=== PATIENT | female | born 1940 | race Caucasian/White ===

== ENCOUNTER 2016-11-08 08:05 | Observation (INO) | payer MEDICARE, BC ==
[2016-11-08] VITALS (7 sets, daily range): BP systolic 143–204; BP diastolic 68–86; PULSE 59–75; RESP 14–18; TEMP 98; O2SAT 98–100
[~2016-11-08] VITALS: Ht 152.4 cm; Wt 50.0 kg
[~2016-11-08 08:05] MED LIST: BACT800T5 PO; METO25CR PO; METO25TA6 PO; NAPR-576 PO; OMEP20TA PO; PROBCAP4 PO; ROSU40 PO; VIVE0.05 TD; [UNRECOGNIZED DRUG - CODE] PO
--- NOTE | 2016-11-08 08:18 | PD ---
Physical Exam Date Seen by Provider: Nov 08, 2016 Time Seen by Provider: 08:13 Narrative PT is a 76 year old female presenting to the ED with c/o sharp chest pain that started at 0530 this AM. Pain lasted for a few seconds, but she continues to have a dull burning pain that has continued since that time. Pt feels tired, but no SOB, n/v, RSUH. Pt states she feels nervous and shaky. Pt reports her pain as 2-3/10, burning persistent heaviness in her chest. No hx of CVA or AMI. Pt is on ASA daily. Data Data Last Documented VS Vital Signs Date Time Temp Pulse Resp B/P Pulse Ox O2 Delivery O2 Flow Rate FiO2 11/08/16 08:09 98.0 75 17 204/86 98 Orders Electrocardiogram (11/08/16 ) [facility] Supervised Visit with KAY: Alyse Almazan Nov 08, 2016 08:18
[2016-11-08] MEDS ORDERED: ASPIRIN 81 MG CHEW TAB PO ONE (08:30)
[2016-11-08] MEDS ORDERED: SODIUM CHLORIDE 0.9% FLUSH 10 ML FLUSH IVF PRN (08:30)
[2016-11-08] MEDS ORDERED: MULTTAB67 PO (08:32)
[2016-11-08] MEDS ORDERED: ASPI1TAB69 PO (08:32)
[2016-11-08] MEDS ORDERED: METO25TA6 PO (08:32)
[2016-11-08] MEDS ORDERED: QUIN20TA2 PO (08:32)
--- NOTE | 2016-11-08 08:36 | PD ---
HPI Chief Complaint: Chest Pain Time Seen by Provider: 08:32 Travel History International Travel<30 days: Yes Contact w/Intl Traveler<30days: [place] Traveled to: [email or web address] Traveled to known affect area: No History of Present Illness HPI This 76-year-old woman who presents to the emergency department complaining of chest pain times this morning. States she woke up at about 5:30 this morning when she felt like her heart skipped hard and afterward she had heaviness and discomfort in the right side of her chest. She describes burning and heaviness and discomfort that been ongoing since that time. She went to get dressed to go to taoism but during the course of getting dressed symptoms worsened. She states she's had occasional skipped beats in the past but never this pressure- like heaviness in her chest. She otherwise has been feeling generally well and healthy. She has felt a little shaky since the episode. Denies any shortness of breath or diaphoresis associated with the episodes. She is a history of hypertension. No other medical problems. No history of CAD. She states about 2 years ago she had some dizziness and was seen by Dr. Galaviz and had an extensive workup that included a stress test, Holter, neck ago, was negative. She walks about 2 miles a day on the treadmill and has not had any trouble with change in exercise tolerance. 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) Allergies-Medications (Allergen,Severity, Reaction): Coded Allergies: Hydrocodone (Verified Allergy, Severe, Nausea/Vomiting, 03/30/16) Tramadol (Verified Allergy, Severe, VOMITING, 03/30/16) Lortab (Verified Adverse Reaction, Intermediate, VOMITTING, 03/30/16) Cephalosporins (Verified Adverse Reaction, Mild, Diarrhea, 03/30/16) Zithromax (Verified Adverse Reaction, Mild, Diarrhea, 03/30/16) Reported Meds & Prescriptions Reported Meds & Active Scripts Active Reported Multiple Vitamin 1 Tab 1 Tab PO DAILY Aspirin 81 Mg Tabdr 81 Mg PO DAILY Quinapril-Hydrochlorothiazide 20-12.5 Mg Tab 1 Tab PO DAILY Metoprolol Succinate ER 24 HR (Metoprolol Succinate) 25 Mg Tab 25 Mg PO BID Review of Systems Except as stated in HPI: all other systems reviewed are Neg Physical Exam Narrative GENERAL: Well-appearing 76-year-old woman, no acute distress. SKIN: Focused skin assessment warm/dry. NECK: Trachea midline. No JVD. CARDIOVASCULAR: Regular rate and rhythm. No murmur appreciated. RESPIRATORY: No accessory muscle use. Clear to auscultation. Breath sounds equal bilaterally. GASTROINTESTINAL: Abdomen soft, non-tender, nondistended. Hepatic and splenic margins not palpable. MUSCULOSKELETAL: No obvious deformities. No clubbing. No cyanosis. No edema. NEUROLOGICAL: Awake and alert. No obvious cranial nerve deficits. Motor grossly within normal limits. Normal speech. PSYCHIATRIC: Appropriate mood and affect; insight and judgment normal. Data Data Last Documented VS Vital Signs Date Time Temp Pulse Resp B/P Pulse Ox O2 Delivery O2 Flow Rate FiO2 11/08/16 08:25 73 14 177/86 100 Room Air 11/08/16 08:09 98.0 Orders Electrocardiogram (11/08/16 ) Ckmb (Isoenzyme) Profile (11/08/16 08:24) Complete Blood Count With Diff (11/08/16 08:24) Comprehensive Metabolic Panel (11/08/16 08:24) Magnesium (Mg) (11/08/16 08:24) Prothrombin Time / Inr (Pt) (11/08/16 08:24) Act Partial Throm Time (Ptt) (11/08/16 08:24) Troponin I (11/08/16 08:24) Chest, Single Ap (11/08/16 08:24) Ecg Monitoring (11/08/16 08:24) Bilateral Bp Monitoring (11/08/16 08:24) Iv Access Insert/Monitor (11/08/16 08:24) Oximetry (11/08/16 08:24) Oxygen Administration (11/08/16 08:24) Aspirin Chew (Aspirin Chew) (11/08/16 08:30) Sodium Chloride 0.9% Flush (Ns Flush) (11/08/16 08:30) Lipase (11/08/16 08:32) CKMB (11/08/16 08:35) CKMB% (11/08/16 08:35) Labs Laboratory Tests Test 11/08/16 08:35 White Blood Count 4.5 TH/MM3 Red Blood Count 4.57 MIL/MM3 Hemoglobin 13.0 GM/DL Hematocrit 38.5 % Mean Corpuscular Volume 84.3 FL Mean Corpuscular Hemoglobin 28.4 PG Mean Corpuscular Hemoglobin 33.7 % Concent Red Cell Distribution Width 14.0 % Platelet Count 148 TH/MM3 Mean Platelet Volume 9.9 FL Neutrophils (%) (Auto) 57.7 % Lymphocytes (%) (Auto) 28.9 % Monocytes (%) (Auto) 9.7 % Eosinophils (%) (Auto) 3.3 % Basophils (%) (Auto) 0.4 % Neutrophils # (Auto) 2.6 TH/MM3 Lymphocytes # (Auto) 1.3 TH/MM3 Monocytes # (Auto) 0.4 TH/MM3 Eosinophils # (Auto) 0.1 TH/MM3 Basophils # (Auto) 0.0 TH/MM3 CBC Comment DIFF FINAL Differential Comment Prothrombin Time 10.4 SEC Prothromb Time International 0.9 RATIO Ratio Activated Partial 24.3 SEC Thromboplast Time Sodium Level 139 MEQ/L Potassium Level 4.0 MEQ/L Chloride Level 103 MEQ/L Carbon Dioxide Level 29.9 MEQ/L Anion Gap 6 MEQ/L Blood Urea Nitrogen 25 MG/DL Creatinine 0.98 MG/DL Estimat Glomerular Filtration 55 ML/MIN Rate Random Glucose 95 MG/DL Calcium Level 9.6 MG/DL Magnesium Level 2.5 MG/DL Total Bilirubin 0.3 MG/DL Aspartate Amino Transf 24 U/L (AST/SGOT) Alanine Aminotransferase 21 U/L (ALT/SGPT) Alkaline Phosphatase 88 U/L Total Creatine Kinase 183 U/L Creatine Kinase MB 3.2 NG/ML Troponin I LESS THAN 0.02 NG/ML Total Protein 7.9 GM/DL Albumin 3.8 GM/DL Lipase 187 U/L [facility] Medical Decision Making Medical Screen Exam Complete: Yes Emergency Medical Condition: Yes Interpretation(s) My review of EKG: Normal sinus rhythm at a rate of 69, slightly leftward axis, normal intervals, no definite evidence of acute ischemia. LABS: CBC unremarkable. CMP unremarkable. Troponin negative. Lipase normal. Coags unremarkable Chest x-ray: No acute disease. Differential Diagnosis ACS, palpitations, anxiety, gastritis or reflux, hepatobiliary disease, pancreatitis, PE, dissection, other Narrative Course Medical decision making INITIAL: This 76-year-old woman who presents to the emergency department complaining of heaviness and burning pain in the right side of her chest that started this morning about 5:30 AM, gradually worsening. Looks well. Negative workup about 2 years ago. No history of CAD. History is moderately suspicious for ACS. No evidence of PE or dissection. We'll check labs, x-ray, EKG, likely admission to the chest pain Center for further evaluation. Diagnosis Primary Impression: Chest pain Qualified Code: R07.9 - Chest pain, unspecified type Yazan Plasencia MD Nov 08, 2016 08:36 Yazan Palsencia MD Nov 08, 2016 08:36
[2016-11-08 08:51] LABS: AUTOMATED NEUTROPHIL # 2.6 TH/MM3 (1.8-7.7); BASOPHIL % 0.4 % (0.0-2.0); EOSINOPHIL # 0.1 TH/MM3 (0-0.4); EOSINOPHIL % 3.3 % (0.0-4.0); HEMATOCRIT 38.5 % (35.0-46.0); HEMO FLAGS DIFF FINAL; LYMPH % 28.9 % (9.0-44.0); LYMPHOCYTE # 1.3 TH/MM3 (1.0-4.8); MEAN CELL VOLUME 84.3 FL (80.0-100.0); MEAN CORPUSCULAR HEMOGLOBIN 28.4 PG (27.0-34.0); MEAN CORPUSCULAR HGB CONC 33.7 % (32.0-36.0); MONO % 9.7 % (0.0-8.0); NEUT % 57.7 % (16.0-70.0); PLATELET COUNT 148 TH/MM3 (150-450); RED BLOOD COUNT 4.57 MIL/MM3 (4.00-5.30); WHITE BLOOD COUNT 4.5 TH/MM3 (4.0-11.0)
--- NOTE | 2016-11-08 08:53 | RADRPT ---
EXAM DATE/TIME: 11/08/2016 08:29 [place] COMPARISON: CHEST SINGLE AP, October 17, 2014, 11:37. INDICATIONS : Chest pain. MEDICAL HISTORY : None. SURGICAL HISTORY : None. ENCOUNTER: Initial ACUITY: 1 day PAIN SCORE: 0/10 LOCATION: Bilateral chest FINDINGS: A single view of the chest demonstrates the lungs to be symmetrically aerated without evidence of mas s, infiltrate or effusion. The cardiomediastinal contours are unremarkable. Osseous structures are intact. CONCLUSION: No acute disease. Guzman Elder MD FACR on November 08, 2016 at 8:51 Board Certified Radiologist. This report was verified electronically.
[2016-11-08 08:58] LABS: APTT (PATIENT) 24.3 SEC (24.3-30.1); INTERNATIONAL NORMALIZED RATIO 0.9 RATIO; PROTHROMBIN TIME - PATIENT 10.4 SEC (9.8-11.6)
[2016-11-08 09:15] LABS: ANION GAP 6 MEQ/L (5-15); AST (GOT) 24 U/L (15-37); BICARBONATE 29.9 MEQ/L (21.0-32.0); BLOOD UREA NITROGEN 25 MG/DL (7-18); CHLORIDE 103 MEQ/L (98-107); GLOMERULAR FILTRATION RATE 55 ML/MIN (>89); MAGNESIUM 2.5 MG/DL (1.5-2.5); SODIUM (NA) 139 MEQ/L (136-145)
[2016-11-08 09:20] LABS: ALKALINE PHOSPHATASE 88 U/L (45-117); ALT (GPT) 21 U/L (10-53); CREATINE KINASE 183 U/L (26-192); TOTAL BILIRUBIN ADULT 0.3 MG/DL (0.2-1.0)
[2016-11-08 09:32] LABS: CKMB 3.2 NG/ML (0.5-3.6)
[2016-11-08] MEDS ORDERED: PRAV10TA PO (11:26)
[2016-11-08] MEDS ORDERED: METO25TA3 PO (11:26)
[2016-11-08] MEDS ORDERED: ALPRAZolam 0.25 MG TAB PO PRN (11:30)
[2016-11-08] MEDS ORDERED: ONDANSETRON HCL 4 MG/2 ML VIAL IV PRN (11:30)
[2016-11-08] MEDS ORDERED: SODIUM CHLORIDE 0.9% FLUSH 5 ML FLUSH IVF PRN (11:30)
[2016-11-08] MEDS ORDERED: QUIN10TA2 PO ×2 (11:42→16:25)
--- NOTE | 2016-11-08 11:45 | HHI.HP ---
HPI Primary Care Physician Xiomy Perez MD Chief Complaint Chest pain History of Present Illness This is a 76-year-old female that presents to the ED via private vehicle with a complaint of palpitation and chest discomfort. Patient states she's had episodes of sensation where her heart would skip a beat and this has occurred for months. It will be for a split-second and happens about every other day. However this morning at 5:30 she had similar sensation also lasting a split second however the intensity was much stronger. Soon later she also felt a left -sided heaviness in her chest that is still there. She describes the discomfort as mild in nature but new for her. She has found that it helps when she takes in a deep breath. Also complains of dizziness. After discussing this with her, she has had issues with dizziness for many years. She as recently as 2 years ago had a full cardiac workup with Dr. Galaviz for dizziness. She states that she had a treadmill stress test, 2-D echo, 30 day event monitor, and PET nuclear scan and all those results were normal. She saw neurologists and other specialties as well and can are really discover the cause of her dizziness. Then suddenly the dizziness went away for about a few months but began again Wednesday. She feels as if when she is walking the de guzman are coming in on her. Denies headache. Denies numbness tingling weakness in extremities. States she is very active. She walks on a treadmill every day for 3 miles at 2-1/2-3 [id number]. She never gets her symptoms while doing that. She also lifts some weights and does not have discomforts or other symptoms with that activity. Denies recent illness. Denies fevers or chills. Review of Systems General: Patient denies fevers, chills recent, and recent travel HEENT: Patient denies headache, sore throat, difficulty swallowing. Cardiovascular: Has the chest discomfort as mentioned above. Has a sensation of her heart skipping a beat. Denies diaphoresis and syncope. Respiratory: Denies shortness of breath or inspirational chest discomfort. Denies coughing wheezing or hemoptysis. GI: Patient denies nausea, vomiting, diarrhea, abdominal pain, bloody stools. Musculoskeletal: Patient denies joint pain or edema. Denies calf pain or edema. Neurovascular: Complains of dizziness. Patient denies numbness, tingling, weakness in extremities. Denies headache. Endocrine: Denies polyuria and polydipsia. Hematologic: Denies easy bruising. Skin: Denies rash or itching. Past Family Social History Allergies: Coded Allergies: Hydrocodone (Verified Allergy, Severe, Nausea/Vomiting, 03/30/16) Tramadol (Verified Allergy, Severe, VOMITING, 03/30/16) Lortab (Verified Adverse Reaction, Intermediate, VOMITTING, 03/30/16) Cephalosporins (Verified Adverse Reaction, Mild, Diarrhea, 03/30/16) Zithromax (Verified Adverse Reaction, Mild, Diarrhea, 03/30/16) Past Medical History Hypertension, hyperlipidemia, vertigo, and dizziness. Denies diabetes and known CAD. Past Surgical History Noncontributory. Reported Medications Reported Meds & Active Scripts Active Reported Pravastatin 10 Mg Tab Unknown Dose PO DAILY Metoprolol Tartrate 25 Mg Tab 25 Mg PO BID Multiple Vitamin 1 Tab 1 Tab PO DAILY Aspirin 81 Mg Tabdr 81 Mg PO DAILY Quinapril-Hydrochlorothiazide 20-12.5 Mg Tab 1 Tab PO DAILY Active Ordered Medications Current Medications Medications (Trade) Dose Ordered Sig/Abbi Route Start Time Stop Time Status Last Admin (NS Flush) 2 ml UNSCH PRN IVF 11/08/16 08:30 (NS Flush) 2 ml UNSCH PRN IVF 11/08/16 11:30 (NS Flush) 2 ml BID IVF 11/08/16 21:00 (Zofran Inj) 4 mg Q6H PRN IV 11/08/16 11:30 (Aspirin) 325 mg DAILY PO 11/09/16 09:00 (Xanax) 0.25 mg Q8H PRN PO 11/08/16 11:30 Family History Denies family history of CAD. Social History Patient has not smoked for 60 years. She smokes a teenager for 3 years. Has an occasional glass of wine. Denies illicit drugs. She lives alone. Physical Exam Vital Signs Vital Signs Date Time Temp Pulse Resp B/P Pulse Ox O2 Delivery O2 Flow Rate FiO2 11/08/16 11:26 98.0 61 18 159/78 99 11/08/16 11:04 59 15 160/68 99 Room Air 11/08/16 08:25 73 14 177/86 100 Room Air 11/08/16 08:23 69 14 100 Room Air 11/08/16 08:23 100 Room Air 11/08/16 08:23 100 Room Air 11/08/16 08:09 98.0 75 17 204/86 98 Physical Exam GENERAL: This is a well-nourished, well-developed patient, in no apparent distress. Patient speaks in clear complete sentences. Patient is pleasant. HEENT: Head is atraumatic and normocephalic. Neck is supple without lymphadenopathy and trachea is midline. No JVD or carotid bruits. CARDIOVASCULAR: Regular rate and rhythm without murmurs, gallops, or rubs. RESPIRATORY: There is bilateral chest wall tenderness more so on the left side however this is not the same type of discomfort she has been having. Clear to auscultation. Breath sounds equal bilaterally. No wheezes, rales, or rhonchi. No use of accessory muscles. GASTROINTESTINAL: Abdomen is nontender, nondistended. Abdomen soft. No obvious pulsatile mass or bruit. No CVA tenderness. Strong femoral pulses bilaterally. Normal bowel sounds in all quadrants. MUSCULOSKELETAL: Patient is moving upper and lower extremities freely. No calf tenderness or edema, no Homans sign. Strong pulses in upper and lower extremities. NEUROLOGICAL: Patient is alert and oriented. Cranial nerves 2-12 are grossly intact. No focal deficits and speech is clear. SKIN: No rash and turgor is normal. Laboratory Laboratory Tests Test 11/08/16 08:35 White Blood Count 4.5 Red Blood Count 4.57 Hemoglobin 13.0 Hematocrit 38.5 Mean Corpuscular Volume 84.3 Mean Corpuscular Hemoglobin 28.4 Mean Corpuscular Hemoglobin 33.7 Concent Red Cell Distribution Width 14.0 Platelet Count 148 Mean Platelet Volume 9.9 Neutrophils (%) (Auto) 57.7 Lymphocytes (%) (Auto) 28.9 Monocytes (%) (Auto) 9.7 Eosinophils (%) (Auto) 3.3 Basophils (%) (Auto) 0.4 Neutrophils # (Auto) 2.6 Lymphocytes # (Auto) 1.3 Monocytes # (Auto) 0.4 Eosinophils # (Auto) 0.1 Basophils # (Auto) 0.0 CBC Comment DIFF FINAL Differential Comment Prothrombin Time 10.4 Prothromb Time International 0.9 Ratio Activated Partial 24.3 Thromboplast Time Sodium Level 139 Potassium Level 4.0 Chloride Level 103 Carbon Dioxide Level 29.9 Anion Gap 6 Blood Urea Nitrogen 25 Creatinine 0.98 Estimat Glomerular Filtration 55 Rate Random Glucose 95 Calcium Level 9.6 Magnesium Level 2.5 Total Bilirubin 0.3 Aspartate Amino Transf 24 (AST/SGOT) Alanine Aminotransferase 21 (ALT/SGPT) Alkaline Phosphatase 88 Total Creatine Kinase 183 Creatine Kinase MB 3.2 Troponin I LESS THAN 0.02 Total Protein 7.9 Albumin 3.8 Lipase 187 Result Diagram: 11/08/16 0835 11/08/16 0835 Imaging Last Impressions Chest X-Ray 11/08/16823 Signed Impressions: Service Date/Time: Tuesday, November 08, 2016 08:29 - CONCLUSION: No acute disease. Guzman Elder MD FACR Course Initial EKG is sinus rhythm without significant ST segment depressions or elevations. Assessment and Plan Assessment and Plan * Chest pain: Patient will continue to have serial cardiac enzymes and EKGs for ruling out purposes. She will be seen by Dr. Comer in the chest pain center and then at that time to determine further plan. * Hypertension: Continue current medications. She has been hypertensive in the ER. We'll give a dose amlodipine at this time. Continue to monitor. * Hyperlipidemia: Patient takes pravastatin. * Chronic dizziness: Patient should follow-up with her primary care physician. Patient is stable at this time. She is agreeable to this plan. Jan Tirado Nov 08, 2016 11:45
[2016-11-08] MEDS ORDERED: amLODIPine BESYLATE 5 MG TAB PO ONE (12:00)
[2016-11-08 12:10] LABS: CREATINE KINASE 170 U/L (26-192)
[2016-11-08 12:22] LABS: CKMB 3.2 NG/ML (0.5-3.6)
[2016-11-08 14:34] LABS: CREATINE KINASE 154 U/L (26-192)
[2016-11-08 14:46] LABS: CKMB 3.5 NG/ML (0.5-3.6)
--- NOTE | 2016-11-08 15:25 | EKG ---
Date Performed: 11/08/2016 Time Performed: 08:24:37 PTAGE: 76 years EKG: Sinus rhythm LOW QRS VOLTAGE IN PRECORDIAL LEADS BORDERLINE ECG PREVIOUS TRACING : 10/17/2014 11.29 DOCTOR: Daren Comer Interpretating Date/Time 11/08/2016 15:24:53
--- NOTE | 2016-11-08 15:27 | EKG ---
Date Performed: 11/08/2016 Time Performed: 11:51:01 PTAGE: 76 years EKG: SINUS BRADYCARDIA BORDERLINE ECG PREVIOUS TRACING : 11/08/2016 08.24 DOCTOR: Daren Comer Interpretating Date/Time 11/08/2016 15:25:24
--- NOTE | 2016-11-08 15:27 | EKG ---
Date Performed: 11/08/2016 Time Performed: 13:58:05 PTAGE: 76 years EKG: SINUS BRADYCARDIA BORDERLINE ECG NO PREVIOUS TRACING DOCTOR: Daren Comer Interpretating Date/Time 11/08/2016 15:25:50
--- NOTE | 2016-11-08 15:55 | TR ---
Date Performed: 11/08/2016 Time Performed: 15:14:06 DOCTOR: Daren Comer DRUG LIST: CLINICAL HISTORY: REASON FOR TEST: Chest pain REASON FOR ENDING: OBSERVATION: CONCLUSION: REGGIE PROTOCOL. NO CP. TEST STOPPED AFTER EXCEEDING GOAL HR SECONDARY TO SOB AND LEG FATIGUE. GOOD EXERCISE TOLERANCE. NORMAL BLOOD PRESSURE RESPONSE TO EXERCISE. ECG TRACINGS ARE NEGAT DEEPA FOR ISCHEMIC CHANGES. RECOVERY WAS QUICK AND UNEVENTFUL WITH RESOLUTION OF SHORTNESS OF BREATH. M aximum SB=983 % Max HR Achieved=81.0% Maximum TZ=261/90 Total Exercise Time=8:59 COMMENTS: CONCLUSION: Normal exercise treadmill. No evidence of ischemia.
[2016-11-08] MEDS ORDERED: AMLO5TAB2 PO (16:25)
--- NOTE | 2016-11-08 16:27 | HHI.DCPOC ---
Discharge Care Plan Diagnosis: (1) Chest pain (2) Hypertension (3) Hyperlipidemia Goals to Promote Your Health * To prevent worsening of your condition and complications * To maintain your health at the optimal level Directions to Meet Your Goals Take your medications as prescribed Follow your dietary instruction Follow activity as directed Keep your appointments as scheduled Take your immunizations and boosters as scheduled If your symptoms worsen call your PCP, if no PCP go to Urgent Care Center or Emergency Room Smoking is Dangerous to Your Health. Avoid second hand smoke Call the 24-hour hour crisis hotline for domestic abuse at Jan Tirado Nov 08, 2016 16:27
[2016-11-08] MEDS ORDERED: METOPROLOL TARTRATE 25 MG TAB PO SCH (21:00)
[2016-11-08] MEDS ORDERED: LISINOPRIL 10 MG TAB PO SCH (21:00)
[2016-11-08] MEDS ORDERED: HYDROCHLOROTHIAZIDE 12.5 MG CAP PO SCH (21:00)
[2016-11-08] MEDS ORDERED: SODIUM CHLORIDE 0.9% FLUSH 5 ML FLUSH IVF SCH (21:00)
[2016-11-09] MEDS ORDERED: ASPIRIN 325 MG TAB PO SCH (09:00)
== END 2016-11-08 17:02 | disposition home or self-care (01) ==
LOC: NEPC 08:05 → NEDH 09:44 → NEPHCDU 11:13
PROVIDERS: ADMIT Family Medicine; ATTEND Family Medicine
DX: R07.89 Other chest pain (principal); R00.2 Palpitations; R42 Dizziness and giddiness; I10 Essential (primary) hypertension; E78.5 Hyperlipidemia, unspecified; Z88.5 Allergy status to narcotic agent; Z88.1 Allergy status to other antibiotic agents; Z79.82 Long term (current) use of aspirin; Z87.891 Personal history of nicotine dependence
CPT/HCPCS: 71010; 80053; 82550; 82552; 83690; 83735; 84484; 85025; 85610; 85730; 93005; 93017; 99285; G0378

== ENCOUNTER 2017-01-25 13:04 | Emergency (ER) | payer MEDICARE, BC ==
[~2017-01-25] VITALS: Ht 152.4 cm; Wt 50.0 kg
[~2017-01-25 13:04] MED LIST changes: +AMLO5TAB2 PO; +ASPI1TAB69 PO; -BACT800T5 PO; -METO25CR PO; +METO25TA3 PO; -METO25TA6 PO; +MULTTAB67 PO; -NAPR-576 PO; -OMEP20TA PO; +PRAV10TA PO; -PROBCAP4 PO; +QUIN10TA2 PO; -ROSU40 PO; -VIVE0.05 TD; -[UNRECOGNIZED DRUG - CODE] PO
[2017-01-25 13:05] VITALS: BP 188/86; PULSE 77; RESP 16; TEMP 98.2; O2SAT 98
[2017-01-25 14:45] VITALS: BP 175/86; PULSE 68; RESP 20; O2SAT 99
[2017-01-25] MEDS ORDERED: SODIUM CHLOR 0.9% 1000 ML INJ 1,000 ML IV ONE (15:00)
--- NOTE | 2017-01-25 15:06 | PD ---
HPI Chief Complaint: Hypertension Time Seen by Provider: 14:43 Travel History International Travel<30 days: No Contact w/Intl Traveler<30days: No Traveled to known affect area: No History of Present Illness HPI This is a 76-year-old female who has a history of hypertension who presents to the emergency department with a headache that started this morning, constant, moderate severity, described as a pressure on the top of her head, associated with some nausea and dizziness. She denies any chest pain or trouble breathing. She says when her headache started she took her blood pressure and it was in the 200s. She took an extra 5 mg of amlodipine around noon that her blood pressure still didn't come down so she came to the emergency department. She says for the past 5 days her blood pressure has been very erratic. She says in the morning and tends to be normal but then mid day it goes quite high. She also says that she's had some fevers and chills but doesn't have any dysuria or cough. PFSH Past Medical History Hx Anticoagulant Therapy: Yes (asa) Arthritis: Yes Heart Rhythm Problems: No Cardiac Catheterization: No Cardiovascular Problems: Yes High Cholesterol: Yes Congestive Heart Failure: No Diabetes: No Diminished Hearing: No Hypertension: Yes Musculoskeletal: Yes (COSTOCHONDRITIS) Neurologic: Yes (vertigo) Immunizations Current: Yes Menopausal: Yes : 1 Para: 1 Past Surgical History Cholecystectomy: Yes (2003) Coronary Artery Bypass Graft: No Eye Surgery: Yes (BILAT CATARACT, LENS IMPLANTS) Gynecologic Surgery: Yes (BREAST BIOPSYS 1979 AND 1987) Hysterectomy: Yes (GRACE WITH LT OOPHORECTOMY 1983) Other Surgery: Yes (BREAST BIOPSY X2, 1979/1987) Social History Alcohol Use: No 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) Substance Use: No Allergies-Medications (Allergen,Severity, Reaction): Coded Allergies: Hydrocodone (Verified Allergy, Severe, Nausea/Vomiting, 01/25/17) Tramadol (Verified Allergy, Severe, VOMITING, 01/25/17) Lortab (Verified Adverse Reaction, Intermediate, VOMITTING, 01/25/17) Cephalosporins (Verified Adverse Reaction, Mild, Diarrhea, 01/25/17) Zithromax (Verified Adverse Reaction, Mild, Diarrhea, 01/25/17) Reported Meds & Prescriptions Reported Meds & Active Scripts Active Reported Aspirin EC (Aspirin) 81 Mg Tabdr 81 Mg PO HS Amlodipine (Amlodipine Besylate) 5 Mg Tab 5 Mg PO DAILY PRN Quinapril-Hydrochlorothiazide 20-12.5 Mg Tab 1 Tab PO HS Pravastatin 10 Mg Tab Unknown Dose PO DAILY Metoprolol Tartrate 25 Mg Tab 25 Mg PO BID Multiple Vitamin 1 Tab 1 Tab PO DAILY Review of Systems Except as stated in HPI: all other systems reviewed are Neg Physical Exam Narrative GENERAL:Well appearing, no acute distress SKIN: Focused skin assessment warm and dry. HEAD: Atraumatic. Normocephalic. EYES: Pupils equal and round. No injection or drainage. ENT: Moist mucous membranes NECK: Trachea midline. CARDIOVASCULAR: Regular rate and rhythm. No murmur appreciated. RESPIRATORY: Clear to auscultation. Breath sounds equal bilaterally. GASTROINTESTINAL: Abdomen soft, non-tender, nondistended. MUSCULOSKELETAL: No obvious deformities. NEUROLOGICAL: Awake and alert. No obvious cranial nerve deficits. No dysarthria or aphasia. No upper or lower extremity drift. No upper extremity ataxia. PSYCHIATRIC: Appropriate mood and affect; insight and judgment normal. Data Data Last Documented VS Vital Signs Date Time Temp Pulse Resp B/P Pulse Ox O2 Delivery O2 Flow Rate FiO2 01/25/17 16:30 70 15 151/67 100 Room Air 01/25/17 13:[address] Brain W/O Iv Contrast(Rout) (01/25/17 ) Complete Blood Count With Diff (01/25/17 14:51) Comprehensive Metabolic Panel (01/25/17 14:51) ^ Insert Iv (01/25/17 14:51) Urinalysis - C+S If Indicated (01/25/17 14:51) Sodium Chlor 0.9% 1000 Ml Inj (Ns 1000 M (01/25/17 15:00) Labs Laboratory Tests Test 01/25/17 01/25/17 15:12 16:30 White Blood Count 4.9 TH/MM3 Red Blood Count 4.46 MIL/MM3 Hemoglobin 12.8 GM/DL Hematocrit 37.7 % Mean Corpuscular Volume 84.4 FL Mean Corpuscular Hemoglobin 28.6 PG Mean Corpuscular Hemoglobin 33.9 % Concent Red Cell Distribution Width 14.0 % Platelet Count 148 TH/MM3 Mean Platelet Volume 10.5 FL Neutrophils (%) (Auto) 60.5 % Lymphocytes (%) (Auto) 31.7 % Monocytes (%) (Auto) 6.2 % Eosinophils (%) (Auto) 1.3 % Basophils (%) (Auto) 0.3 % Neutrophils # (Auto) 3.0 TH/MM3 Lymphocytes # (Auto) 1.6 TH/MM3 Monocytes # (Auto) 0.3 TH/MM3 Eosinophils # (Auto) 0.1 TH/MM3 Basophils # (Auto) 0.0 TH/MM3 CBC Comment DIFF FINAL Differential Comment Sodium Level 138 MEQ/L Potassium Level 3.9 MEQ/L Chloride Level 102 MEQ/L Carbon Dioxide Level 29.0 MEQ/L Anion Gap 7 MEQ/L Blood Urea Nitrogen 16 MG/DL Creatinine 0.87 MG/DL Estimat Glomerular Filtration 63 ML/MIN Rate Random Glucose 77 MG/DL Calcium Level 9.3 MG/DL Total Bilirubin 0.5 MG/DL Aspartate Amino Transf 25 U/L (AST/SGOT) Alanine Aminotransferase 21 U/L (ALT/SGPT) Alkaline Phosphatase 71 U/L Total Protein 7.4 GM/DL Albumin 3.7 GM/DL Urine Color COLORLESS Urine Turbidity CLEAR Urine pH 6.0 Urine Specific Driscoll 1.003 Urine Protein NEG mg/dL Urine Glucose (UA) NEG mg/dL Urine Ketones TRACE mg/dL Urine Occult Blood NEG Urine Nitrite NEG Urine Bilirubin NEG Urine Urobilinogen LESS THAN 2.0 MG/DL Urine Leukocyte Esterase NEG Urine RBC LESS THAN 1 /hpf Urine WBC LESS THAN 1 /hpf Urine Squamous Epithelial <1 /hpf Cells Microscopic Urinalysis Comment CULT NOT INDICATED MDM Medical Decision Making Medical Screen Exam Complete: Yes Emergency Medical Condition: Yes Interpretation(s) Afebrile, no tachycardia, hypertensive No leukocytosis Electrolytes are reassuring Urinalysis is negative for infection CT the head is negative for itch cranial hemorrhage Differential Diagnosis Urinary tract infection, hypertensive urgency, hypertensive emergency, intracranial hemorrhage Narrative Course This is a 76-year-old female who presents to the emergency department with high blood pressure, headache and nausea. She took an extra amlodipine prior to arrival. She was quite hypertensive on arrival but serial blood pressure readings have improved significantly. She is a normal neurologic exam. CT of the head was unremarkable and labs are all reassuring as well as normal urinalysis. I think patient can be discharged home and I instructed her to take 10 mg of amlodipine a day instead of 5. Diagnosis Primary Impression: Hypertension Qualified Code: I10 - Essential hypertension Patient Instructions: General Instructions Additional Instructions: If you develop severe chest pain, shortness of breath, sweating, lightheadedness , dizziness or difficulty breathing return to the emergency department immediately. Followup with your primary care physician in 2-3 days if your symptoms are not resolved. Take 10 mg of amlodipine instead of 5. Med/Other Pt SpecificInfo: Existing Med Changed Disposition: 01 DISCHARGE HOME Condition: Stable Leola Hightower MD Jan 25, 2017 15:06
[2017-01-25] MEDS ORDERED: AMLO5TAB2 PO (15:08)
[2017-01-25] MEDS ORDERED: QUIN20TA2 PO (15:08)
[2017-01-25] MEDS ORDERED: ASPI81TA11 PO (15:08)
[2017-01-25 15:37] LABS: BASOPHIL % 0.3 % (0.0-2.0); EOSINOPHIL # 0.1 TH/MM3 (0-0.4); EOSINOPHIL % 1.3 % (0.0-4.0); HEMATOCRIT 37.7 % (35.0-46.0); HEMO FLAGS DIFF FINAL; LYMPH % 31.7 % (9.0-44.0); LYMPHOCYTE # 1.6 TH/MM3 (1.0-4.8); MEAN CELL VOLUME 84.4 FL (80.0-100.0); MEAN CORPUSCULAR HEMOGLOBIN 28.6 PG (27.0-34.0); MEAN CORPUSCULAR HGB CONC 33.9 % (32.0-36.0); MONO % 6.2 % (0.0-8.0); NEUT % 60.5 % (16.0-70.0); PLATELET COUNT 148 TH/MM3 (150-450); RED BLOOD COUNT 4.46 MIL/MM3 (4.00-5.30); WHITE BLOOD COUNT 4.9 TH/MM3 (4.0-11.0)
[2017-01-25 15:53] LABS: ANION GAP 7 MEQ/L (5-15); AST (GOT) 25 U/L (15-37); BLOOD UREA NITROGEN 16 MG/DL (7-18); CHLORIDE 102 MEQ/L (98-107); GLOMERULAR FILTRATION RATE 63 ML/MIN (>89); POTASSIUM 3.9 MEQ/L (3.5-5.1); SODIUM (NA) 138 MEQ/L (136-145)
[2017-01-25 15:57] LABS: ALKALINE PHOSPHATASE 71 U/L (45-117); ALT (GPT) 21 U/L (10-53); TOTAL BILIRUBIN ADULT 0.5 MG/DL (0.2-1.0)
--- NOTE | 2017-01-25 16:05 | RADRPT ---
EXAM DATE/TIME: 01/25/2017 15:33 [facility] COMPARISON: CT BRAIN W/O CONTRAST, October 17, 2014, 11:12. INDICATIONS : Elavated blood pressure and nausea. RADIATION DOSE: 56.77 CTDIvol (mGy) MEDICAL HISTORY : Cardiovascular disease. Hypertension. SURGICAL HISTORY : oopherectomy ENCOUNTER: Initial ACUITY: 1 day PAIN SCALE: 4/10 LOCATION: Bilateral cranial TECHNIQUE: Multiple contiguous axial images were obtained of the head. Using automated exposure control and adjustment of the mA and/or kV according to patient size, radiation dose was kept as low as reasonably achievable to obtain optimal diagnostic quality images. FINDINGS: CEREBRUM: The ventricles are normal for age. No evidence of midline shift, mass lesion, hemorrha ge or acute infarction. No extra-axial fluid collections are seen. POSTERIOR FOSSA: The cerebellum and brainstem are intact. The 4th ventricle is midline. The cer ebellopontine angle is unremarkable. EXTRACRANIAL: The visualized portion of the orbits is intact. SKULL: The calvaria is intact. No evidence of skull fracture. CONCLUSION: Negative for an acute process. Guzman Elder MD FACR on January 25, 2017 at 15:52 Board Certified Radiologist. This report was verified electronically.
[2017-01-25 16:30] VITALS: BP 151/67; PULSE 70; RESP 15; O2SAT 100
[2017-01-25 16:52] LABS: BLOOD, URINE NEG (NEG); COMMENT (UR) CULT NOT INDICATED; CULTURE IF INDICATED CULT NOT INDICATED; GLUCOSE,URINE NEG (NEG); KETONE, URINE TRACE mg/dL (NEG); NITRITE,URINE NEG (NEG); SQUAMOUS EPITHELIAL CELL URINE <1 /hpf (0-5); URINE COLOR COLORLESS (YELLW/STRAW)
== END 2017-01-25 17:38 | disposition home or self-care (01) ==
LOC: NEPD 13:04
DX: I10 Essential (primary) hypertension (principal); E78.00 Pure hypercholesterolemia, unspecified; R11.0 Nausea; R51 Headache; R42 Dizziness and giddiness
CPT/HCPCS: 70450; 80053; 81001; 85025; 96360; 99285; J7030